=== PATIENT | male | born 2000 | race African-American/Black ===

== ENCOUNTER 2023-02-28 11:06 | Emergency (ER) | payer OTHER ==
[2023-02-28 11:11] VITALS: BP 116/79; PULSE 76; RESP 18; TEMP 98.9; BMI 21.2
[2023-02-28] MEDS ORDERED: ACETAMINOPHEN 500 MG TABLET (FP) PO ONE (11:11)
[2023-02-28] MEDS ORDERED: ACETAMINOPHEN 500 MG TABLET (FP) ONE (11:32)
== END 2023-02-28 12:27 | disposition home or self-care (01) ==
LOC: FER 11:06
DX: R05.9 Cough, unspecified (principal); R51.9 Headache, unspecified; R50.9 Fever, unspecified; J06.9 Acute upper respiratory infection, unspecified; B97.89 Other viral agents as the cause of diseases classified elsewhere; Z20.822 Contact with and (suspected) exposure to COVID-19
CPT/HCPCS: 0241U-QW; 99283-25